=== PATIENT | female | born 1965 | race Caucasian/White ===

== ENCOUNTER 2022-04-25 16:12 | Outpatient (CLI) | payer OTHER, SELFPAY ==
--- NOTE | ~2022-04-25 | MM_ITS ---
EXAMINATION: MM screening deidre BI w juliet HISTORY: Screening mammogram TECHNIQUE: Craniocaudal and mediolateral oblique 3-D tomosynthesis images were obtained and synthetic 2-D images were generated. CAD analysis was submitted and interpreted. COMPARISON: 09/03/2013 bilateral screening mammogram BREAST PARENCHYMAL COMPOSITION: There are scattered areas of fibroglandular density. FINDINGS: There is no evidence of suspicious mass, calcification, or architectural distortion to sugg est malignancy in either breast. There has been no suspicious interval change. IMPRESSION: 1. No mammographic evidence of malignancy. 2. Recommend routine screening mammography in one year. BI-RADS Category 1: Negative Reviewed, dictated and finalized at location A. 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
== END 2022-04-25 16:13 | disposition home or self-care (01) ==
PROVIDERS: PCP Family Medicine; Visit Provider Physician Assistant Medical
DX: Z12.31 Encounter for screening mammogram for malignant neoplasm of breast (principal)
CPT/HCPCS: 77063; 77067

== ENCOUNTER 2023-06-06 15:19 | Outpatient (CLI) | payer OTHER, SELFPAY ==
--- NOTE | ~2023-06-06 | MM_ITS ---
EXAMINATION: MM screening deidre BI w juliet HISTORY: Screening TECHNIQUE: Craniocaudal and mediolateral oblique 3-D tomosynthesis images were obtained and synthetic 2-D images were generated. CAD analysis was submitted and interpreted. COMPARISON: Comparison to multiple prior studies sequentially, with oldest reviewed study dated 09/03. BREAST PARENCHYMAL COMPOSITION: Not dense: There are scattered areas of fibroglandular density. FINDINGS: There is no evidence of suspicious mass, calcification, or architectural distortion to sugg est malignancy in either breast. There has been no suspicious interval change. IMPRESSION: 1. No mammographic evidence of malignancy. 2. Recommend routine screening mammography in one year. BI-RADS Category 1: Negative Reviewed, dictated and finalized at location A.
== END 2023-06-06 15:20 | disposition home or self-care (01) ==
LOC: ANHIMG 15:22
PROVIDERS: PCP Family Medicine; Visit Provider Family Medicine
DX: Z12.31 Encounter for screening mammogram for malignant neoplasm of breast (principal)
CPT/HCPCS: 77063; 77067

== ENCOUNTER 2024-10-21 15:08 | Outpatient (CLI) | payer OTHER, SELFPAY ==
--- OUTSIDE RECORDS SUMMARY | 2024-08-18 19:00 | XMS_ITS | Continuity of Care Document ---
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 Name Role Phone Alexander Reddy MD, MD Unavailable Unavailable Allergies, Adverse Reactions, Alerts Substance Reaction Status Criticality PRESERVATIVE Active No Information Medications Medication Instructions Dosage Effective Dates (start - stop) Status Comments PAROXETINE HCL (unknown strength) take 1 tablet by oral route every day Not Available - Active VITAMIN D3 (unknown strength) Not Available - Active FLUTICASONE PROPIONATE (unknown strength) Not Available - Active MULTIVITAMINS (unknown strength) Not Available - Active PROBIOTIC (unknown strength) Not Available - Active ZYRTEC (unknown strength) Not Available - Active FLAXSEED OIL (unknown strength) Not Available - Active Procedures Procedure Date OFFICE/OUTPATIENT VISIT, EST Eye Exam Estab Patient Routine OFFICE/OUTPATIENT VISIT, EST REFRACTION EYE EXAM & TREATMENT OFFICE/OUTPATIENT VISIT, EST OFFICE/OUTPATIENT VISIT, NEW OFFICE/OUTPATIENT VISIT, EST OFFICE/OUTPATIENT VISIT, EST OFFICE/OUTPATIENT VISIT, EST OFFICE/OUTPATIENT VISIT, EST OFFICE/OUTPATIENT VISIT, NEW OFFICE CONSULTATION EYE EXAM ESTABLISHED PAT Lasik Evaluation Lasik Evaluation Advance Directives Directive Yes / No Effective Date File Name No Information Encounters Encounter Description Practice Location Reason(s) For Visit Diagnoses Date Provider Providers Copied on Encounter [facility], [place], [id number] tel:[phone] [facility] No Information 5 Barry Munoz. [facility], [place], [id number]. tel:[phone] OFFICE/OUTPAT IENT VISIT, EST [facility], [place], [id number] tel:[phone] BHAVIN Mirza floater right eye 6 week(s) (chief complaint)gl aucoma suspect right eye and left eye 3 year(s) (chief complaint) PVD (posterior vitreous detachment), right eye 5 Barry Munoz. [facility], [facility] [place], [id number]. tel:[phone] [facility], [place], [id number] tel:[phone] [facility] glaucoma suspect right eye and left eye 2 year(s) (chief complaint)co mments only (chief complaint)co mments only (chief complaint) Glaucoma suspect, bilateralMyo ian with presbyopia of both eyesUnspecif ied epiphora, bilateral lacrimal glands Nov-0 4 Barry Munoz. [facility], [place], [id number]. tel:[phone] OFFICE/OUTPAT IENT VISIT, EST [facility], [place], [id number] tel:[phone] [facility] tearing right eye and left eye (chief complaint) Unspecified epiphora, bilateral lacrimal glands Aug-3 3 Garrett Jasso. [facility] , [place], [id number]. tel:[phone] [facility], [address] [place], [place] [address] [place], [id number] tel:[phone] BHAVIN [place] comprehensiv e exam right eye and left eye (chief complaint)co mments only (chief complaint) Itchy eyesMyopia of both eyesGlaucoma suspect, bilateral Dec-2 2 Barry Munoz. [facility], [address] [place] [address] [place], [place], [id number]. tel:[phone] Referring Provider: Alexander Fierro, [facility] [address] [place] [address] [place], [address]. tel:[phone] OFFICE/OUTPAT IENT VISIT, EST [facility], [address] [place], [place] [address] [place], [place], [id number] tel:[phone] BHAVIN [place] epiphora right eye and left eye (chief complaint) Unspecified epiphora, bilateral lacrimal glands Apr-0 6 2 Barry Munoz. [facility], [address] [place] [address] [place], [place], [id number]. tel:[phone] OFFICE/OUTPAT IENT VISIT, NEW [facility], [address] [place], [place] [address] [place], [id number] tel:[phone] BHAVIN [place] epiphora right > left 3 month(s) (chief complaint) Unspecified epiphora, bilateral lacrimal glands Mar-0 9-202 2 Barry Munoz. [facility], [address] [place] [address] [place], [place], [id number]. tel:[phone] OFFICE/OUTPAT IENT VISIT, EST [facility], [facility] [place], [id number] tel:[phone] BHAVIN [place] Unspecified epiphora, bilateral lacrimal glands Yusuf-0 9-201 8 Barry Munoz. [facility], [address] [place] [address] [place], [place], [id number]. tel:[phone] Referring Provider: Alexander Fierro, [facility] [address] [place] [address], [id number]. tel:[phone] OFFICE/OUTPAT IENT VISIT, EST [facility], [address] [place] [address], [id number] tel:[phone] BHAVIN [place] Unspecified epiphora, bilateral lacrimal glands Mar-0 7 8 Barry Munoz. [facility], [address] [place] [address], [id number]. tel:[phone] Referring Provider: Alexander Fierro, [facility] [address] [place] [address], [id number]. tel:[phone] OFFICE/OUTPAT IENT VISIT, [facility], [address] [place] [address], [id number] tel:[phone] BHAVIN [place] Unspecified epiphora, bilateral lacrimal glands Fe- 8 Barry Munoz. [facility], [address] [place] [address], [id number]. tel:[phone] Referring Provider: Alexander Fierro, [facility] [address] [place] [address], [id number]. tel:[phone] OFFICE/OUTPAT IENT VISIT, [facility], [address] [place] [address], [id number] tel:[phone] BHAVIN [place] Unspecified epiphora, bilateral lacrimal glands Nba-2 8 7 Barry Munoz. [facility], [address] [place] [address] [place], [id number]. tel:[phone] OFFICE/OUTPAT IENT VISIT, [facility], [address] [place] [address] [place], [place], [id number] tel:[phone] BHAVIN [place] Unspecified epiphora, bilateral lacrimal glands Nba-0 7- 7 Barry Munoz. [facility], [address] [place] [address] [place], [place], [id number]. tel:[phone] OFFICE CONSULTATION [facility], [address] [place], [id number] tel: [phone] BHAVIN [place] Epiphora, unspecified as to cause 9 Elliot Andrew. [facility] , [address] [place], [place], [id number]. tel:[phone] [facility], [address] [place], [id number] tel: [phone] BHAVIN [place] Epiphora, unspecified as to cause 9 No Informatio n [facility], [address] [place], [id number] tel: [phone] BHAVIN [place] Optical Myopia 9 Barry Munoz. [facility], [facility] [place] , [place], [id number]. tel:[phone] [facility], [address] [place], [id number] tel: [phone] BHAVIN [place] [facility] Myopia 0 9 Barry Munoz. [facility], [address] [place], [place], [id number]. tel:[phone] [facility], [address] [place], [id number] tel: [phone] BHAVIN [place] Progressive high (degenerativ e) myopiaAstigm atism, unspecified 7 Tasia Dahl. [facility], [address] [place], [id number]. tel:[phone] [facility], [address] [place] [place], [id number] tel: [phone] BHAVIN [place] MyopiaAstigm atism, unspecified 7 No Informatio n Family History Family Member Type Diagnosis Age At Onset Nephew Problem (finding) Diabetes mellitus Mother Problem (finding) cataract Payers Payer name Insurance type Covered libertarian ID Authoriza tion(s) No Information Social History Type Description Quantity Date Captured Comments Sex Female Smoking Status No Information Chief Complaint And Reason For Visit No Information Reason For Referral Reason For Referral No Information History Of Present Illness Encounter Date Complaint History Of Prese nt Illness glaucoma suspect The 58 year old presents for evaluation of glaucoma suspect in the right eye and left eye. It started about 3 year(s) ago. floater The 58 year old presents for evaluation of floater in the right eye. It started about 6 week(s) ago. It affects VA not affected. The condition is improving. Large floater in central line of vision OD initially. Spider web appearance that has gotten better and not as big but still noticeable. No flashes OD. glaucoma suspect The 58 year old presents for evaluation of glaucoma suspect in the right eye and left eye. It started about 2 year(s) ago. It affects VA not affected. The symptom is constant. It occurs always. comments only Using Systane PF AT's QOD OU. Eyes feel pretty good overall. comments only Feels like glass es prescription may need updated, as she takes Rx glasses off to read, especially when she is reading for long periods. tearing The 56 year old presents for evaluation of tearing in the right eye and left eye. It affects both near and far vision. The condition is not any better. PT. states some green discharge in AM. Went to PCP got Ofloxacin. Redness and tearing all the time. Does use FML RX from Dr Reddy started Friday. In the morning her eyes are still matted shut in the AM. Eyes are sore, has been using Ibuprofen for with help. comprehensive exam The 56 year o ld presents for evaluation of comprehensive exam in the right eye and left eye. It affects OU. The symptom is constant. It occurs always. The condition is stable. Vision stable OU. When reading for a long period of time, she will take her glasses Rx off to read. comments only H/O epiphora OU using Zaditor QD OU, which helps improve itching. epiphora The 55 year old presents for evaluation of epiphora in the right eye and left eye. The symptom is constant. It occurs always. The condition is improving. Patient states tearing has pretty much stopped. Today she does have some tearing, possibly due to allergies. No longer using FML gtt OU for about one week. epiphora The 55 year old presents for evaluation of epiphora in the right > left. It started about 3 month(s) ago. The symptom is frequent. It occurs during weather changes. The condition is not any better. In addition, the condition is associated with skin soreness and mattering. 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 FML gtt used in the past did help. Currently using Zaditor QD OU. Functional Status Date Functional Assessmen t No Information Instructions Date Instruction Additional Infor mation Return in accordance with current recall Related to PVD (posterior vitreous detachment), right eye Impression/Plan Related to PVD ( posterior vitreous detachment), right eye Return in 1 year Alexander Millan MD for Complete and OCT (Optic Nerve). Related to Glaucoma suspect, bilateral Impression/Plan Related to Glauc alejandro suspect, bilateral Impression/Plan Related to Myopi a with presbyopia of both eyes Impression/Plan Related to Unspe cified epiphora, bilateral lacrimal glands Return in in accorda nce with current recall Related to Unspecified epiphora, bilateral lacrimal glands Impression/Plan Related to Unspe cified epiphora, bilateral lacrimal glands Return in 1 year Alexander Millan MD for Complete. Related to Glaucoma suspect, bilateral Impression/Plan Related to Glauc alejandro suspect, bilateral Impression/Plan Related to Itchy eyes Impression/Plan Related to Myopi a of both eyes needed Related to Unspe cified epiphora, bilateral lacrimal glands Impression/Plan Related to Unspe cified epiphora, bilateral lacrimal glands Return in 3 weeks Alexander Pemberton MD for Quick and IOP. Related to Unspecified epiphora, bilateral lacrimal glands Impression/Plan Related to Unspe cified epiphora, bilateral lacrimal glands Follow up - As needed Related to Unspecified epiphora, bilateral lacrimal glands Unspecified epiphora , bilateral lacrimal glands OU Condition: established, stable with treatment. - Patient reports tearing is stable now with only the use of OTC Zaditor gtts. Exam shows no increased tear bruce OU. Patient can continue Zaditor PRN up to BID OU. No additional treatment recommended at this time. Follow up as needed. Related to Unspecified epiphora, bilateral lacrimal glands Follow up - Return i n 1 year with Alexander Reddy MD for Complete. Related to Unspecified epiphora, bilateral lacrimal glands Unspecified epiphora , bilateral lacrimal glands OU Condition: established, stable with treatment. - Patient reports some improvement in tearing with current treatment with FML drops. Discussed H/O recurrence off of FML treatment. Exam shows fair tear bruce OD>OS. Recommend continue FML QD OU for 1 month now and then stop its use. Patient to call if tearing worsens. Discussed surgical procedure may be necessary if symptom of tearing recurs. 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 Follow up in 1 year. Related to Unspecified epiphora, bilateral lacrimal glands Follow up - Return i n 3 weeks with Alexander Reddy MD for Quick and IOP. Related to Unspecified epiphora, bilateral lacrimal glands Unspecified epiphora , bilateral lacrimal glands OU Condition: established, worsening. - Patient reports with tearing, itching, and burning OD>OS. Discussed that the eyes tear for two reasons - either they are irritated or inflamed on the surface and there is reflex tearing, or there is blockage of the normal tear drainage system. If due to a blockage problem the tearing will be constant and chronic, with tears spilling down the cheek. If the watering is due to irritation, there will be reflex tearing and intermittent symptoms. There is an irregular tear bruce OU on exam. Recommend to start FML TID OU for 1 week, then BID OU for 1 week, then QD OU for 1 week, and then stop its use. Shake well before use and ERx sent to pharmacy. Follow up in 3 weeks. Related to Unspecified epiphora, bilateral lacrimal glands Follow up - Return i n 1 year with Alexander Reddy MD for Complete. Related to Unspecified epiphora, bilateral lacrimal glands Unspecified epiphora , bilateral lacrimal glands OU Condition: established, improving with treatme. - Patient reports improvement in tearing with current treatment with FML. Discussed steroid use can cause high eye pressures. Exam shows IOP's are slightly high today. OHT is a risk factor for glaucoma. Optic nerves appear stable on undilated SLE. Exam is physically improved with no evidence of epiphora. Recommend decrease FML to QOD OU until bottle is empty and then stop its use. Patient to call with concerns. Follow up in 1 year for complete exam. Related to Unspecified epiphora, bilateral lacrimal glands - Return in 3 weeks with Alexander Reddy MD for Quick. Related to Epiphora, bilateral Epiphora, bilateral OU Condition: new problem addtl w/u needed. - Patient reports tearing more than dryness and itching of both eyes OD>OS. Exam shows UL>LL palpebral reaction. Discussed that the eyes tear for two reasons - either they are irritated or inflamed on the surface and there is reflex tearing, or there is blockage of the normal tear drainage system. If due to a blockage problem the tearing will be constant and chronic, with tears spilling down the cheek. If the watering is due to irritation, there will be reflex tearing and intermittent symptoms. Puncta patent OU. H/O follicular reaction OU in 2008 with tearing, treated with FML gtts successfully. Recommend begin FML TID OU for 1 week, then BID OU for 1 week, and then QD OU. Shake well before use and ERx sent to pharmacy. Follow up in 3 weeks. Related to Epiphora, bilateral Assessments Type Assessment Date No Information Patient Care Teams Name Effective Dates (start - stop) Status Members No Information
--- OUTSIDE RECORDS SUMMARY | 2024-09-30 08:54 | XMS_ITS | Continuity of Care Document ---
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 Role Phone Argelia Claudio MD, MD Unavailable Unavailabl e Allergies, Adverse Reactions, Alerts Substance Reaction Status Criticality No Known Allergies Active No Inform ation Medications Medication Instructions Dosage Effective Dates (start - stop) Status Comments ipratropium bromide 42 mcg (0.06 %) nasal spray spray 2 spray by intranasal route 3 times every day in each nostril as needed 2.00 spray - Active Systane (PF) 0.4 %-0.3 % eye drops in a dropperette as needed - Active Unknown Herbal Supplement Arthocin capsule take BID - Active Vitamin D3 50 mcg (2,000 unit) tablet take one tablet every other day - Active paroxetine 10 mg tablet take 1/2 tablet by oral route every day - Active Leny-C with Bioflavonoids 500 mg-200 mg tablet take 1 tablet by oral route every day 1 tablet - Active fluticasone propionate 50 mcg/actuation nasal spray,suspension spray 1 spray by intranasal route every day in each nostril - Active Probiotic 10 billion cell capsule 35 billion cell capsule daily - Active multivitamin tablet take 1 tablet by oral route every day with food - Active cod liver oil capsule take one capsule every other day - Active Zyrtec 10 mg capsule - Activ e Procedures Procedure Date EKG With Interp And Report Office Visit Level 4 LTH Monitor, 48 Hrs Up To 7-days, Comple te EKG With Interp And Report Office Visit Level 4 ACP Disc And Doc, Surrogate Documented J Holter Monitor, Up To 48 Hrs EKG With Interp And Report Office Visit Level 4 ACP Disc And Doc, Surrogate Documented J EKG With Interp And Report Office Visit Level 4 ACP Disc And Doc, Surrogate Documented J LTH Monitor, 48 Hrs Up To 7-days, Interp EKG With Interp And Report Office Visit Level 4 ACP Disc And Doc, No Surrogate Documente d Holter Monitor, Up To 48 Hrs EKG With Interp And Report Office Visit Level 4 ACP Disc And Doc, No Surrogate Documente d Holter Monitor, Up To 48 Hrs EKG With Interp And Report Office Visit Level 4 ACP Disc And Doc, Surrogate Documented J Holter Monitor, Up To 48 Hrs EKG With Interp And Report Office Visit Level 4 Echo, 2D Complete Office Visit Level 4 EKG With Interp And Report Holter Monitor, Up To 48 Hrs EKG With Interp And Report Office Visit Level 4 Office Visit Level 4 EKG With Interp And Report Holter Monitor, Up To 24 Hrs Office Visit Level 4 EKG With Interp And Report Holter Monitor, Up To 24 Hrs No Charge 24 Hr Holter Monitor 14 EKG With Interp And Report Office Visit Level 4 Echo, 2D Complete EKG With Interp And Report Office Visit Level 4 Holter Monitor, Up To 24 Hrs Office Visit Level 4 Holter Monitor, Up To 24 Hrs EKG With Interp And Report Office Visit Level 4 Holter Monitor, Complete 24 Hr./Commerci al Office Visit Level 4 Holter Monitor, Complete 24 Hr./Commerci al Medical Records Charge Office Consultation Level 3 IO-Holter 24 Hr IO-Holter 24 Hr EKG With Interp And Report Office Visit Level 2 Office Visit Level 3 EM-Office Visit Level 2 Holter Monitor, Complete 24 Hr./Commerci al EKG With Interp And Report Office/outpatient visit, est, exp prob J EM-Office Visit Level 2 EKG With Interp And Report Office/outpatient visit, est, exp prob M EM-Office Consultation Level 3 06 EKG With Interp And Report EM-Office Visit Level 1 Holter Monitor, Complete 24 Hr./Commerci al EM-Office Visit Level 4 Office/outpatient visit, est, exp prob A EM-Office Visit Level 3 EM-Office Visit Level 3 EM-Office Visit Level 3 Advance Directives Directive Yes / No Effective Date File Name No Information Encounters Encounter Description Practice Location Reason(s) For Visit Diagnoses Date Provider Providers Copied on Encounter [facility], [address], [place], [address], [place] tel:[phone] Kennard CVM No Information 5 [facility] Stout. [facility] [address], [place], [place], [address], [place]. tel:[phone] Office Visit Level 4 [facility], [address], [place], [address], [place] tel:[phone] Adela CV Cardiovascul ar Review (chief complaint) Atrial premature depolarizati onPalpitatio nsRheumatic fever 5 Marcin Yen. [facility], [address], [place], [place], [address], [place]. tel:[phone] Referring Provider: Farshad Gonzalez, [facility] [address], [place], [address]. tel:[phone] [facility], [address], [place], [address], [place] tel:[phone] DX Kennard CVM Atrial premature depolarizati on 5 [facility] Referring Provider: Farshad Gonzalez, [facility] [address], [place], [address]. tel:[phone] [facility], [address], [place], [address], [place] tel:[phone] [facility] CVM Atrial premature depolarizati on 5 [facility] Stout. [facility], [address], [place], [place], [address], [place]. tel:[phone] Office Visit Level 4 [facility], [address], [place], [address], [place] tel:[phone] Kennard CVM Cardiovascul ar Review (chief complaint) Atrial premature depolarizati onPalpitatio nsRheumatic fever 4 [facility]. [facility], [address], [place], [place], [address], [place]. tel:[phone] Referring Provider: Farshad Gonzalez, [facility] [address], [place], [address]. tel:[phone] [facility], [address], [place], [address], [place] tel:[phone] DX Adela CVM Atrial premature depolarizati on 4 [facility]. [facility]. Referring Provider: Farshad Gonzalez, [facility] [address], [place], [address]. tel:[phone] Office Visit Level 4 [facility], [address], [place], [address], [place] tel:[phone] Adela CVM Palpitations Atrial premature depolarizati onRheumatic fever 3 Marcin [facility]en. [facility], [address], [place], [place], [address], [place]. tel:[phone] Referring Provider: Farshad Gonzalez, [facility] [address], [place], [address]. tel:[phone] Office Visit Level 4 [facility], [address], [place], [address], [place] tel:[phone] [place] C[facility] Palpitations Atrial premature depolarizati onCerebrovas cular disease, unspecifiedS upraventricu lar tachycardia 2 Anahi Yen. [facility], [address], [place], [place], [address], [place]. tel:[phone] Referring Provider: Farshad Garcia, [facility] [address], [place], [address]. tel:[phone] [facility], [address], [place], [address], [place] tel:[phone] DX Adela CVM Supraventric ular tachycardiaA trial premature depolarizati on 2 Anahi Yen. [facility], [address], [place], [place], [address], [place]. tel:[phone] Referring Provider: Farshad Garcia, [facility] [address], [place], [address]. tel:[phone] Office Visit Level 4 [facility], [address], [place], [address], [place] tel:[phone] [place] CVM Atrial premature depolarizati onSupraventr icular tachycardiaP alpitationsH ypercholeste rolemiaCereb rovascular disease 1 Anahi Yen. [facility], [address], [place], [place], [address], [place]. tel:[phone] Referring Provider: Farshad Garcia, [facility] [address], [place], [address]. tel:[phone] [facility], [address], [place], [address], [place] tel:[phone] DX Adela CVM Supraventric ular tachycardiaP alpitations 1 No Informatio n Referring Provider: Farshad Garcia, [facility] [address], [place], [address]. tel:[phone] Office Visit Level 4 [facility], [address], [place], [address], [place] tel:[phone] [place] CVM Palpitations Atrial premature depolarizati on 0 Anahi Yen. [facility], [address], [place], [place], [address], [place]. tel:[phone] Referring Provider: Farshad Garcia, [facility] [address], [place], [address]. tel:[phone] [facility], [address], [place], [address], [place] tel:[phone] DX Kennard CVM Atrial premature depolarizati onPalpitatio ns 0 No Informatio n Referring Provider: Farshad Garcia, [facility] [address], [place], [address]. tel:[phone] Office Visit Level 4 [facility], [address], [place], [address], [place] tel:[phone] [place] CVM Follow Up Visit (chief complaint) Palpitations Atrial premature depolarizati on 9 Anahi Yen. [facility] , [address], [place], [place], [address], [place]. tel:[phone] Referring Provider: Farshad Garcia, [facility] [address], [place], [address]. tel:[phone] [facility], [address], [place], [address], [place] tel:[phone] DX Adela CVM Atrial premature depolarizati onPalpitatio ns 9 No Informatio n Referring Provider: Farshad Anahi MD W, [facility] [address], [place], [address]. tel:[phone] Office Visit Level 4 [facility], [address], [place], [address], [place] tel:[phone] [place] CVM Cardiovascul ar Review (chief complaint)Pa lpitations (chief complaint)PA C (chief complaint) Palpitations Atrial premature depolarizati on 8 Anahi Yen. [facility], [address], [place], [place], [address], [place]. tel:[phone] Referring Provider: Farshad Garcia, [facility] [address], [place], [address]. tel:[phone] [facility], [address], [place], [address], [place] tel:[phone] DX Adela CVM Palpitations Atrial premature depolarizati on 8 No Informatio n Referring Provider: Farshad Garcia, [facility] [address], [place], [address]. tel:[phone] Office Visit Level 4 [facility], [address], [place], [address], [place] tel:[phone] Kennard CVM general (chief complaint)Pa lpitations (chief complaint)Fo llow Up Visit (chief complaint) Palpitations Atrial premature depolarizati on 7 Anahi Yen. [facility], [address], [place], [place], [address], [place]. tel:[phone] Referring Provider: Farshad Garcia, [facility] [address], [place], [address]. tel:[phone] [facility], [address], [place], [address], [place] tel:[phone] DX Adela CVM No Information 7 Anahi Yen. [facility], [address], [place], [place], [address], [place]. tel:[phone] Referring Provider: Farshad Garcia, [facility] [address], [place], [address]. tel:[phone] Office Visit Level 4 [facility], [address], [place], [address], [place] tel:[phone] Kennard CVM general (chief complaint) Palpitations Atrial premature depolarizati on 6 Anahi Yen. [facility], [address], [place], [place], [address], [place]. tel:[phone] Referring Provider: Farshad Garcia, [facility] [address], [place], [address]. tel:[phone] Office Visit Level 4 [facility], [address], [place], [address], [place] tel:[phone] [facility] CVM Kennard Follow Up Visit (chief complaint)ge neral (chief complaint) PACPalpitati ons 5 Anahi Yen. [facility], [address], [place], [place], [address], [place]. tel:[phone] Referring Provider: Farshad Garcia, [facility] [address], [place], [address]. tel:[phone] [facility], [address], [place], [address], [place] tel:[phone] DX Adela CVM No Information 5 Anahi Yen. [facility], [address], [place], [place], [address], [place]. tel:[phone] Referring Provider: Farshad Garcia, [facility] [address], [place], [address]. tel:[phone] [facility], [address], [place], [address], [place] tel:[phone] Kennard CVM Palpitations 5 González Stout. [facility], [address], [place], [place], [address], [place]. tel:[phone] [facility], [address], [place], [address], [place] tel:[phone] Adela CVM Follow Up Visit (chief complaint)ge neral (chief complaint) PAC 4 Gideon Baum. [facility], [address], [place], [place], [address], [place]. tel:[phone] Referring Provider: Sarika Campbell, [facility] [address], [place], [address]. tel:[phone] [facility], [address], [place], [address], [place] tel:[phone] DX Kennard CVM No Information 4 Anahi Yen. [facility], [address], [place], [place], [address], [place]. tel:[phone] Referring Provider: Farshad Garcia, [facility] [address], [place], [address]. tel:[phone] [facility], [address], [place], [address], [place] tel:[phone] DX Kennard CVM No Information 4 Anahi Yen. [facility], [address], [place], [place], [address], [place]. tel:[phone] Referring Provider: Sarika Campbell, [facility] [address], [place], [address]. [phone] [facility], [address], [place], [address], [place] tel:[phone] [place] [facility] Palpitations PAC 3 Gideon Baum. [facility], [address], [place], [place], [address], [place]. tel:[phone] Referring Provider: Sarika Campbell, [facility] [address], [place], [address]. tel:[phone] [facility], [address], [place], [address], [place] tel:[phone] DX Kennard CVM No Information 2 No Informatio n Referring Provider: Farshad Garcia, [facility] [address], [place], [address]. tel:[phone] [facility], [address], [place], [address], [place] tel:[phone] [place] CVM PACPalpitati ons 2 Anahi Yen. [facility], [address], [place], [place], [address], [place]. tel:[phone] Referring Provider: Farshad Garcia, [facility] [address], [place], [address]. tel:[phone] [facility], [address], [place], [address], [place] tel:[phone] DX Adela CVM No Information 2 Anahi Yen. [facility], [address], [place], [address], [place]. tel:[phone] Referring Provider: Farshad Garcia, [facility] [address], [place], [address]. tel:[phone] [facility], [address], [place], [address], [place] tel:[phone] [place] CVM Palpitations PAC 1 Anahi Yen. [facility], [address], [place], [address], [place]. tel:[phone] Referring Provider: Farshad Garcia, [facility] [address], [place], [address]. tel:[phone] [facility], [address], [place], [address], [place] tel:[phone] DX Adela CVM No Information 1 Anahi Yen. [facility], [address], [place], [address], [place]. tel:[phone] Referring Provider: Farshad Garcia, [facility] [address], [place], [address]. tel:[phone] [facility], [address], [place], [address], [place] tel:[phone] [place] [facility] Palpitations PAC 0 Anahi Yen. [facility], [address], [place], [place], [address], [place]. tel:[phone] Referring Provider: Farshad Garcia, [facility] [address], [place], [address]. tel:[phone] [facility], [address], [place], [address], [place] tel:[phone] DX Kennard CVM No Information 0 Anahi Yen. [facility], [address], [place], [address], [place]. tel:[phone] Referring Provider: Farshad Garcia, [facility] [address], [place], [address]. tel:[phone] [facility], [address], [place], [address], [place] tel:[phone] [place] C[facility] Palpitations Premature beats, atrial 9 Anahi Yen. [facility], [address], [place], [place], [address], [place]. tel:[phone] Referring Provider: Farshad Garcia, [facility] [address], [place], [address]. tel:[phone] [facility], [address], [place], [address], [place] tel:[phone] DX Kennard CVM No Information 9 González Stout. [facility], [address], [place], [place], [address], [place]. tel:[phone] Referring Provider: Farshad Garcia, [facility] [address], [place], [address]. tel:[phone] [facility], [address], [place], [address], [place] tel:[phone] Adela CVM No Information Oct-3 0200 8 Jordon campbell. [facility], [address], [place], [address], [place]. tel:[phone] [facility], [address], [place], [address], [place] tel:[phone] [place] CVM Palpitations Premature beats, atrial Sep- 6 8 Anahi Yen. [facility], [address], [place], [address], [place]. tel:[phone] Referring Provider: Ken Ruvalcbaa MD, [facility] [address], [place], [address]. tel:[phone] [facility], [address], [place], [address], [place] tel:[phone] Adela CVM No Information 7 8 Jordon campbell. [facility], [address], [place], [place], [address], [place]. tel:[phone] Referring Provider: FABRICE Bustos. [facility], [address], [place], [address], [place] tel:[phone] [place] C[facility] Palpitations Premature beats, atrial Aug- 0200 8 Jordon campbell. [facility], [address], [place], [place], [address], [place]. tel:[phone] Referring Provider: Ken Ruvalcaba MD, [facility] [address], [place], [address]. tel:[phone] [facility], [address], [place], [address], [place] tel:[phone] [place] C[facility] Palpitations Premature beats, atrial Jul- 8 Jordon campbell. [facility], [address], [place], [place], [address], [place]. tel:[phone] Referring Provider: Ken Ruvalcaba MD, [facility] [address], [place], [address]. tel:[phone] [facility], [address], [place], [address], [place] tel:[phone] [place] C[facility] Palpitations Premature beats, atrial 7 Jordon campbell. [facility], [address], [place], [place], [address], [place]. tel:[phone] Referring Provider: Ken Ruvalcaba MD, [facility] [address], [place], [address]. tel:[phone] [facility], [address], [place], [address], [place] tel:[phone] DX Adela CVM No Information 7 Jordon guzman [facility] , [address], [place], [place], [address], [place]. tel:[phone] Referring Provider: Ken Ruvalcaba MD, [facility] [address], [place], [address]. tel:[phone] [facility], [address], [place], [address], [place] tel:[phone] [place] C[facility] Palpitations Premature beats, atrial Aug- 7 Jordon campbell. [facility], [address], [place], [place], [address], [place]. tel:[phone] Referring Provider: Ken Ruvalcaba MD, [facility] [address], [place], [address]. tel:[phone] [facility], [address], [place], [address], [place] tel:[phone] [facility] CVM No Information 6 Jordon campbell. [facility], [address], [place], [address], [place]. tel:[phone] Referring Provider: Ken Ruvalcaba MD, [facility] [address], [place], [address]. tel:[phone] [facility], [address], [place], [address], [place] tel:[phone] Adela CVM No Information 6 Jordon campbell. [facility], [address], [place], [address], [place]. tel:[phone] Referring Provider: Ken Ruvalcaba MD, [facility] [address], [place], [address]. tel:[phone] EM-Office Consultation Level 3 [facility], [address], [place], [address], [place] tel:[phone] Adela CVM No Information 6 Corrie Benz. [facility], [address], [place], [place], [address], [place]. tel:[phone] Referring Provider: Ken Ruvalcaba MD, [facility] [address], [place], [address]. tel:[phone] EM-Office Visit Level 1 [facility], [address], [place], [address], [place] tel:[phone] Adela CVM No Information Jan-0 6200 5 Jordon campbell. [facility], [address], [place], [place], [address], [place]. tel:[phone] Referring Provider: Ken Ruvalcaba MD, [facility] [address], [place], [address]. tel:[phone] [facility], [address], [place], [address], [place] tel:[phone] DX Adela CVM No Information Jan-0 5 Jordon campbell. [facility], [address], [place], [place], [address], [place]. tel:[phone] Referring Provider: Ken Ruvalcaba MD, [facility] [address], [place], [address]. tel:[phone] [facility], [address], [place], [address], [place] tel:[phone] Adela CVM No Information 5 Jordon guzman [facility], [address], [place], [address], [place]. tel:[phone] Referring Provider: Ken Ruvalcaba MD, [facility] [address], [place], [address]. tel:[phone] Office/outpat ient visit, est, exp prob [facility], [address], [place], [address], [place] tel:[phone] Adela CVM No Information 0 5 [facility], [address], [place], [place], [id number], [place]. tel:[phone] Referring Provider: Ken Ruvalcaba MD, [facility] [address], [place], [address]. tel:[phone] EM-Office Visit Level 3 [facility], [address], [place], [address], [place] tel:[phone] Adela CVM No Information 5 [facility]ordon camp[facility]. [facility], [address], [place], [place], [id number], [place]. tel:[phone] Referring Provider: Ken Ruvalcaba MD, [facility] [address], [place], [address]. tel:[phone] EM-Office Visit Level 3 [facility], [address], [place], [address], [place] tel:[phone] Adela CVM No Information 5 [facility]ordon camp[facility]. [facility], [address], [place], [place], [id number], [place]. tel:[phone] Referring Provider: Ken Ruvalcaba MD, [facility] [address], [place], [address]. tel:[phone] EM-Office Visit Level 3 [facility], [address], [place], [address], [place] tel:[phone] Adela CVM No Information 5 [facility]ordon camp[facility]. [facility], [address], [place], [place], [id number], [place]. tel:[phone] Referring Provider: Ken Ruvalcaba MD, [facility] [address], [place], [address]. tel:[phone] Family History Family Member Type Diagnosis Age At Onset Father Problem (finding) CABG Sister Problem (finding) ovarian and breast CA Mother Problem (finding) coronary arterioscleros is Father Problem (finding) Pacemaker 68 Mother Problem (finding) stents Mother Problem (finding) rheumatoid arthritis Father Problem (finding) stroke Father Problem (finding) coronary arterioscleros is Father Problem (finding) CHF Mother Problem (finding) [place] Sister Problem (finding) rheumatoid arthrtis Immunizations Vaccine Date Status Comments COVID-19 Moderna administered Source: [facility] Unspecified COVID-19 Moderna administered Source: [facility] Unspecified Payers Payer name Insurance type Covered green party ID Authoriza tion(s) [facility] CI [id number] Social History Type Description Quantity Date Captured Comments Alcohol Use Details Unknown Caffeine Use Details Unknown Tobacco Use Status No Information Smoking Status No Information Sex Female Chief Complaint And Reason For Visit No Information Reason For Referral Reason For Referral No Information Plan Of Treatment Date Type Action Status Appointment Latrice Kemp BOOKED Future Order: Radiology Order Ho lter Skilled Nursing Monitor (ECG), Appointment on: , Collected on: Ordered Future Order: Radiology Order Ho lter Monitor 24 Hours (ECG), Appointment on: , Collected on: Ordered Future Order: Radiology Order Ho lter Whip Sawyer (ECG), Appointment on: , Collected on: Ordered Future Order: Radiology Order Ho lter Monitor 24 Hours (ECG), Appointment on: , Collected on: Ordered Future Order: Radiology Order Ho lter Monitor 24 Hours (ECG), Appointment on: , Collected on: Ordered Future Order: Radiology Order Ho lter Monitor 24 Hours (ECG), Appointment on: , Collected on: Ordered Future Order: Radiology Order Ec ho Complete ([place]), Appointment on: , Collected on: Ordered Future Order: Radiology Order Ho lter Monitor 24 Hours (ECG), Appointment on: , Collected on: , Sent on: Sent History Of Present Illness Encounter Date Complaint History Of Prese nt Illness Cardiovascular Review She has yen d no chest discomfort suggestive of ischemia. The patient denies orthopnea, PND, LOVE, or edema. Ms. Kemp has not had palpitations, syncope or near syncope. Cardiovascular Review She has yen d no chest discomfort suggestive of ischemia. The patient denies orthopnea, PND, LOVE, or edema. Ms. Kemp has not had palpitations, syncope or near syncope. Follow Up Visit Cardiovascular Review She has yen d no chest discomfort suggestive of ischemia. The patient denies orthopnea, PND, LOVE, or edema. The patient has been having palpitations. She denies claudication. There is no discoloration or ulceration of the lower extremities. She has had no TIA or stroke-like symptoms. The patient has no symptoms attributable to valvular heart disease. PAC Palpitations The patient comp lains of palpitations. 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 She would like to adjust her annual monitoring and appointment to the summer time. general The patient has been having palpitations. She denies claudication. There is no discoloration or ulceration of the lower extremities. She has had no TIA or stroke-like symptoms. The patient has no symptoms attributable to valvular heart disease. Palpitations The patient comp lains of palpitations. general She has had no c hest discomfort suggestive of ischemia. The patient denies orthopnea, PND, LOVE, or edema. Ms. Kemp has not had palpitations, syncope or near syncope. She denies claudication. There is no discoloration or ulceration of the lower extremities. She has had no TIA or stroke-like symptoms. The patient has no symptoms attributable to valvular heart disease. Follow Up Visit general She has had no c hest discomfort suggestive of ischemia. The patient denies orthopnea, PND, LOVE, or edema. Ms. Kemp has not had palpitations, syncope or near syncope. She denies claudication. There is no discoloration or ulceration of the lower extremities. She has had no TIA or stroke-like symptoms. The patient has no symptoms attributable to valvular heart disease. Follow Up Visit Patient states t hat she is doing ok. No chest pain or unusual shortness of breath. She has palpitations at rest. She has occasional dizziness. No presyncope or syncope. general She has had no c hest discomfort suggestive of ischemia. The patient denies orthopnea, PND, LOVE, or edema. Ms. Kemp has not had palpitations, syncope or near syncope. Functional Status Date Functional Assessmen t No Information Instructions Date Instruction Gaston Negror nile PCP Wellness Visit PCP Wellness Visit PCP Wellness Visit PCP Wellness Visit PCP Wellness Visit PCP Wellness Visit PCP Wellness Visit Assessments Type Assessment Date No Information Patient Care Teams Name Effective Dates (start - stop) Status Members No Information
--- NOTE | ~2024-10-21 | MM_ITS ---
EXAMINATION: MM screening deidre BI w juliet HISTORY: Screening TECHNIQUE: Craniocaudal and mediolateral oblique 3-D tomosynthesis images were obtained and synthetic 2-D images were generated. CAD analysis was submitted and interpreted. COMPARISON: Comparison to multiple prior studies sequentially, with oldest reviewed study dated , 08/29/2010 BREAST PARENCHYMAL COMPOSITION: There are scattered areas of fibroglandular density. FINDINGS: There is no evidence of suspicious mass, calcification, or architectural distortion to suggest malignancy in either breast. IMPRESSION: 1. No mammographic evidence of malignancy. 2. Recommend routine screening mammography in one year. BI-RADS Category 1: Negative Reviewed, dictated and finalized at location B.
--- OUTSIDE RECORDS SUMMARY | 2024-10-21 15:12 | XMS_ITS ---
Author Organization Unknown ENCOUNTERS Encounter Performer Location Date Diagnosis Diagnosis Status Outpatient Kristen Aguilar [place] [id number] [place] [address] [id number] [place] Out[facility] Lisa Harper [facility] [address] [place] [address] [id number] [place] *Note: Encounters from your own facility or health system may be excluded. Allergies, Adverse Reactions, Alerts Allergen Type Severity Identification Date codeine drug allergy 4 [id number] Medications Name Date Quantity Days Supplied GPI Number
--- OUTSIDE RECORDS SUMMARY | 2024-10-21 15:12 | XMS_ITS | Clinical Summary ---
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 Gender Identity Not on file Sexual Orientation Not on file Plan of Treatment Health Maintenance Due Date Last Done Comments Hepatitis C Virus (HCV) Screening 1965 TdaP Immunization 1965 Hepatitis B Immunization (1 of 3 - 19+ 3-dose series) 10/10/1986 Pap Smear 10/10/1988 Cervical Cancer Screening (CCS) 10/10/1997 HPV/Cotest 10/10/1997 Cologuard 10/10/2012 Colonoscopy 10/10/2012 Colorectal Cancer Screening 10/10/2012 Immunochemical Fecal Occult Blood 10/10/2012 Pneumococcal Immunization (5 0+ years) (1 of 1 - PCV) 10/10/2017 Zoster Immunization (1 of 2) 10/10/2017 SARS-COV-2 Immunization (4 - season) 2023 01/29/2021, 05/06/2020, 04/08/2020 Influenza Immunization (#1) 10/25/202410/25, 12/11/2017 Respiratory Syncytial Virus (RSV) Immunization (Adult) (1 - 1-dose 75+ series) 10/10/2042 Human Papillomavirus (HPV) Immunization Aged Out No longer eligible b ased on patient's age to complete this topic Meningococcal Immunization (ACWY) Aged Out No longer eligible b ased on patient's age to complete this topic Rotavirus Immunization Aged Out No lo nger eligible based on patient's age to complete this topic
--- OUTSIDE RECORDS SUMMARY | 2024-10-21 15:12 | XMS_ITS | Clinical Summary ---
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 This disclosure is being madepursuant to the Care Everywhere program and may not contain all information available regarding this patient. Last updated 17.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 Gender Identity Not on file Sexual Orientation Not on file Last Filed Vital Signs Vital Sign Reading Time Taken Comments Blood Pressure 104/70 09/15/2020 2:59 PM CDT Pulse 68 09/15/2020 2:59 PM CDT Temperature 36.7 C (98.1 F) 09/15/2020 2:59 PM CDT Respiratory Rate 16 09/15/2020 2:59 PM CDT Oxygen Saturation 97% 09/15/2020 2:59 PM CDT Inhaled Oxygen Concentration - - Weight 70.3 kg (155 lb) 09/15/2020 2:59 PM CDT Height 167.6 cm (5' 6) 09/15/2020 2:59 PM CDT Body Mass Index 25.02 09/15/2020 2:59 PM CDT Plan of Treatment Health Maintenance Due Date Last Done Comments COLOGUARD (AGES 45-75) - COL ON CA SCREENING 1965 COLON MONITORING 1967 COLONOSCOPY - COLON CA SCREENING 1967 CT COLONOGRAPHY - COLON CA SCREENING 1967 Colorectal Cancer Screening 1967 FIT - COLON CA SCREENING 1967 FLEX SIG - COLON CA SCREENING 1967 LIPID TESTING 1967 MAMMOGRAM 1967 HIV SCREENING 10/10/1982 HEPATITIS C SCREENING 10/06/1985 DTAP/TDAP/TD VACCINES (1 - Tdap) 10/10/1986 HEPATITIS B VACCINE (1 of 3 - 19+ 3-dose series) 10/10/1986 PNEUMOCOCCAL VACCINE 50+ (1 of 1 - PCV) 10/10/2017 ZOSTER VACCINE (1 of 2) 10/10/2017 SCREENING FOR DIABETES 09/15/2020 COVID-19 VACCINE (3 - 2023-2 5 season) 2023 05/06/2020, 04/08/2020 DEPRESSION SCREENING 02/25/2024 INFLUENZA VACCINE (#1) 2024 , 12/11/2017 HIB VACCINE Aged Out No longer eligi ble based on patient's age to complete this topic HPV VACCINE Aged Out No longer eligi ble based on patient's age to complete this topic MENINGOCOCCAL (Group B) VACCINE SHARED DECISION-MAKING Aged Out No longer eligible based on patient's age to complete this topic MENINGOCOCCAL GROUPS A/C/Y/W VACCINE Aged Out No longer eligible b ased on patient's age to complete this topic Insurance RUTHIE
== END 2024-10-21 15:09 | disposition home or self-care (01) ==
LOC: ANHFOHIMG 15:09
PROVIDERS: PCP Family Medicine; Visit Provider Family Medicine
DX: Z12.31 Encounter for screening mammogram for malignant neoplasm of breast (principal)
CPT/HCPCS: 77063; 77067